=== PATIENT | female | born 1935 | race Caucasian/White ===

== ENCOUNTER → 2018-12-05 12:05 | Outpatient (CLI) | payer MEDICARE, SELFPAY ==
[2018-12-05 13:57] LABS: Free T4, Direct Thyroxine 1.75 ng/dL (0.78-2.19)
[2018-12-05 14:10] LABS: Thyroid Stimulating Hormone 0.24 uIU/mL (0.47-4.68)
== END ==
PROVIDERS: PCP Family Medicine; Visit Provider Family Medicine
DX: E03.9 Hypothyroidism, unspecified (principal)
CPT/HCPCS: 36415; 84439; 84443; 84481

== ENCOUNTER → 2019-06-10 13:37 | Outpatient (CLI) | payer MEDICARE, SELFPAY ==
[2019-06-10 16:44] LABS: Thyroid Stimulating Hormone 0.17 uIU/mL (0.47-4.68)
== END ==
PROVIDERS: PCP Family Medicine; Visit Provider Family Medicine
DX: E03.9 Hypothyroidism, unspecified (principal)
CPT/HCPCS: 36415; 84443

== ENCOUNTER → 2019-09-15 11:56 | Outpatient (CLI) | payer MEDICARE, SELFPAY ==
[2019-09-15 15:15] LABS: Thyroid Stimulating Hormone 1.11 uIU/mL (0.47-4.68)
== END ==
PROVIDERS: PCP Family Medicine; Visit Provider Family Medicine
DX: E03.9 Hypothyroidism, unspecified (principal)
CPT/HCPCS: 36415; 84443

== ENCOUNTER → 2020-06-16 13:49 | Outpatient (CLI) | payer MEDICARE, SELFPAY ==
[2020-06-17 21:19] LABS: COVID19 Sendout Not Detected (Not Detect)
== END ==
PROVIDERS: PCP Family Medicine; Visit Provider Nurse Practitioner
DX: Z11.59 Encounter for screening for other viral diseases (principal); R53.83 Other fatigue
CPT/HCPCS: 87635

== ENCOUNTER → 2020-06-16 14:05 | Outpatient (CLI) | payer MEDICARE, SELFPAY ==
[2020-06-16 16:05] LABS: Hematocrit 42.6 % (36-46); Hemoglobin 14.3 g/dL (12.0-16.0); Mean Corpuscular HGB Conc 33.7 % (30-36); Mean Corpuscular Hemoglobin 32.1 PG (26-34); Mean Corpuscular Volume 95.3 fL (80-100); Platelet Count 254 X10^3/uL (150-400); Red Blood Cell Count 4.47 X10^6/uL (4.0-5.2); Red Cell Distribution Width 13.8 % (11.6-14.8); White Blood Cell Count 6.5 X10^3/uL (4.5-11.0)
[2020-06-16 16:41] LABS: Alanine Aminotransferase 24 IU/L (<35); Albumin 4.2 g/dL (3.5-5.0); Albumin Globulin Ratio 1.2 (1.0-2.8); Alkaline Phosphatase 89 U/L (38-126); Aspartate Aminotransferase 38 IU/L (14-36); BUN Creatinine Ratio 14.5 (6-22); Bilirubin Total 0.6 mg/dL (0.2-1.3); Blood Urea Nitrogen 10 mg/dL (7-17); Carbon Dioxide 25 mmol/L (22-32); Chloride 102 mmol/L (98-107); Estimated Glomerular Filt Rate > 60.0 mL/min (>60); Globulin 3.5 g/dL (1.7-4.1); Glucose 83 mg/dL (80-110); HEMOLYSIS 18 (0-50); Sodium 135 mmol/L (137-145); Total Protein 7.7 g/dL (6.3-8.2)
[2020-06-16 17:02] LABS: TSH w/ Reflex to FT4 0.78 uIU/mL (0.47-4.68)
== END ==
PROVIDERS: PCP Family Medicine; Referring Provider Nurse Practitioner; Visit Provider Nurse Practitioner
DX: Z11.59 Encounter for screening for other viral diseases (principal); R53.83 Other fatigue
CPT/HCPCS: 36415; 80053; 84443; 85027; 87635

== ENCOUNTER → 2020-10-22 07:13 | Outpatient (CLI) | payer MEDICARE, SELFPAY ==
--- NOTE | 2020-10-22 07:15 | DI.RAD.S_ITS ---
PROCEDURE: XR CHEST 2V INDICATIONS: shortness of breath TECHNIQUE: 2 views of the chest were acquired. COMPARISON: CR, CHEST 2 VIEW, 02/18/2014, 9:55. FINDINGS: Surgical changes and devices: None. Lungs and pleura: Lungs are free of evidence of pneumonia or neoplasm but there is pulmonary hyperexpansion that could represent an aggressive inspiratory effort but COPD would be suspected.. No pleural effusions or pneumothorax. Mediastinum: Mediastinal contours are normal. Heart size is normal. Bones and chest wall: No suspicious bony abnormalities. Soft tissues appear unremarkable. IMPRESSION: No acute disease. Pulmonary hyperexpansion with flattening of the diaphragms, to the degree that COPD could be present. Alternatively, a very aggressive inspiratory effort could produce this appearance. Dictated by: Tomas Gamino M.D. on 10/22/2020 at 10:58 Approved by: Tomas Gamino M.D. on 10/22/2020 at 10:58
[2020-10-22 08:18] LABS: Add Manual Diff / Slide Review NO; Basophils Absolute Auto 0 /uL (0-100); Basophils Percent Auto 0.7 % (0-2); Eosinophils Absolute Auto 100 /uL (0-450); Eosinophils Percent Auto 2.1 % (2-4); Hematocrit 46.2 % (36-46); Hemoglobin 15.3 g/dL (12.0-16.0); Lymphocytes Absolute Auto 2000 /uL (1100-4500); Lymphocytes Percent Auto 40.1 % (25-40); Mean Corpuscular HGB Conc 33.2 % (30-36); Mean Corpuscular Hemoglobin 31.1 PG (26-34); Mean Corpuscular Volume 93.7 fL (80-100); Monocytes Absolute Auto 500 /uL (0-900); Monocytes Percent Auto 9.5 % (3-14); Neutrophils Absolute Auto 2400 /uL (1500-7000); Neutrophils Percent Auto 47.6 % (50-75); Platelet Count 239 X10^3/uL (150-400); Red Blood Cell Count 4.93 X10^6/uL (4.0-5.2); Red Cell Distribution Width 14.1 % (11.6-14.8); White Blood Cell Count 4.9 X10^3/uL (4.5-11.0)
[2020-10-22 08:53] LABS: Alanine Aminotransferase 22 IU/L (<35); Albumin 3.9 g/dL (3.5-5.0); Albumin Globulin Ratio 1.1 (1.0-2.8); Alkaline Phosphatase 90 U/L (38-126); Aspartate Aminotransferase 34 IU/L (14-36); BUN Creatinine Ratio 12.9 (6-22); Bilirubin Total 0.8 mg/dL (0.2-1.3); Blood Urea Nitrogen 9 mg/dL (7-17); Calcium 8.9 mg/dL (8.4-10.2); Carbon Dioxide 30 mmol/L (22-32); Chloride 106 mmol/L (98-107); Cholesterol 243 mg/dL (140-199); Estimated Glomerular Filt Rate > 60.0 mL/min (>60); Globulin 3.5 g/dL (1.7-4.1); Glucose 91 mg/dL (80-110); HDL Cholesterol 58 mg/dL (40-60); HEMOLYSIS < 15 (0-50); LDL Cholesterol Calculated 163 mg/dL (<100); Potassium 3.9 mmol/L (3.4-5.1); Sodium 139 mmol/L (137-145); Total Protein 7.4 g/dL (6.3-8.2); Triglycerides 109 mg/dL (35-150)
[2020-10-22 09:33] LABS: TSH w/ Reflex to FT4 0.33 uIU/mL (0.47-4.68)
[2020-10-22 10:00] LABS: Free T4, Direct Thyroxine 1.98 ng/dL (0.78-2.19)
== END ==
PROVIDERS: PCP Family Medicine; Referring Provider Family Medicine; Visit Provider Family Medicine
DX: R06.02 Shortness of breath (principal); E03.9 Hypothyroidism, unspecified
CPT/HCPCS: 36415; 71046; 80053; 80061; 84439; 84443; 85025

== ENCOUNTER → 2020-11-15 13:42 | Outpatient (CLI) | payer MEDICARE, SELFPAY ==
--- NOTE | 2020-11-15 13:43 | DI.MG.S_ITS ---
BILATERAL DIGITAL DIAGNOSTIC MAMMOGRAM 3D/2D: 11/15/2020 CLINICAL: Left breast pain. Comparison is made to exams dated: 06/11/2014 mammogram and 01/17/2005 mammogram - [facility]. The tissue of both breasts is heterogeneously dense. This may lower the sensitivity of mammography. No significant masses, calcifications, or other findings are seen in either breast. IMPRESSION: NEGATIVE There is no abnormality seen in the left breast to correspond with the diffuse pain in the outer aspect, however, clinical correlation is recommended. There is no mammographic evidence of malignancy. A 1 year screening mammogram is recommended. This exam was interpreted at Station ID: [id number]. NOTE: For mammograms, a report in lay terms will be sent to the patient. Approximately 15% of breast malignancies will not be visualized mammographically. In the management of a palpable breast mass, a negative mammogram must not discourage biopsy of a clinically suspicious lesion. Electronically Signed By: Slim ponce/gurpreet:11/15/2020 14:53:45 letter sent: Clinical Evaluation ACR BI-RADS Category 1: Negative [id number]
[2020-11-15 15:19] LABS: COVID19 -Nasal RAPID Negative (Negative)
== END ==
PROVIDERS: PCP Family Medicine; Referring Provider Family Medicine; Visit Provider Family Medicine
DX: N64.4 Mastodynia (principal); Z20.822 Contact with and (suspected) exposure to COVID-19
CPT/HCPCS: 77066; 87635; G0279

== ENCOUNTER → 2020-11-16 08:40 | Outpatient (CLI) | payer MEDICARE, SELFPAY ==
--- NOTE | 2020-11-16 08:41 | DI.NM.S_ITS ---
PROCEDURE: NM RICHAR PERF SPECT REST & STR Rest and exercise myocardial perfusion SPECT with gated imaging and ejection fraction RADIOPHARMACEUTICAL: 11.5 mCi Tc-99m sestamibi IV at rest and 25.2 mCi Tc-99m sestamibi IV at peak exercise. A one day-protocol was performed. INDICATIONS: chest pain, sob TECHNIQUE: Radiopharmaceutical was injected at peak stress test, and also at rest. SPECT images were obtained. SPECT myocardial perfusion images were displayed in short axis, horizontal long axis, and vertical long axis views. Gated images were reviewed using [employer] software. COMPARISON: None. CARDIAC STRESS: A standard Eduardo treadmill exercise tolerance test was performed by the patient under the supervision of an attending staff. The patient exercised for 3 minutes and 6 seconds; functional aerobic impairment (VANESSA) is +25%. Hemodynamic data: There is normal blood pressure and heart rate response to exercise stress. Patient achieved 124% of maximum predicted heart rate at peak exercise. Symptoms: Patient denied chest pain during exercise. EKG: No diagnostic EKG changes of ischemia; no ectopy. FINDINGS: Raw data: There is good myocardial labeling by radiotracer. No significant motion artifacts. Left ventricle function: Gated images demonstrate normal left ventricle wall thickening. No segmental wall motion abnormality. No transient ischemic dilation; TID is 1.15 (normal less than 1.3). The left ventricle resting end-diastolic volume is 55 mL. Left ventricle stress ejection fraction is 87%; normal values are above 45%. Myocardial perfusion: There is normal distribution of activity in the left and right ventricular myocardium. No fixed or reversible perfusion defects. IMPRESSION: Low risk, normal treadmill nuclear stress test 1) No perfusion evidence of ischemia or infarction. 2) Normal left ventricular size, wall motion, and systolic function (EF post stress over calculated at 87%). 3) No ECG evidence of ischemia. 4) No angina during the study. Significant dyspnea with exercise. 5) Reduced exercise capacity (4.6 METs, VANESSA +35% on active scale). Target heart rate achieved. Appropriate BP response to exercise. 6) No prior nuclear stress test available for comparison. Dictated by: Yuli Causey MD on 11/16/2020 at 15:32 Approved by: Yuli Causey MD on 11/16/2020 at 15:35
--- NOTE | 2020-11-16 14:33 | PM.TREADMILL ---
Cardiac Stress Test Report Referral & Results Date Patient Seen: 11/16/20 Requesting provider: Sharlene Graham Indication: Dyspnea with exertion, new inferior Q-waves Rest ECG: Unremarkable, no Q-waves noted Procedure Note: Today following both written and verbal informed consent the patient was exercised according to a standard Eduardo protocol patient went for a total of her 3 minutes 6 seconds achieving a maximum heart rate of 169 maximum systolic blood pressure of 170. This is approximately 4.6 METS. Exercise was terminated at this point because of targets were met. Patient was also given Cardiolite through a previously started Hep-Lock IV by the diagnostic imaging staff approximately 1 minute prior to the cessation of exercise. Patient was somewhat quickly tachycardic and was fairly dyspnea got proportion to level of exertion but oxygen saturation remained normal throughout at 93-94% Function aerobic impairment rated 0 on the sedentary scale No ST-T segment changes Impression: No evidence of ischemia, average exercise capacity Please see perfusion imaging report as well Based on observations while patient was exercising she more likely than not has some element of chronic lung disease and suggest PFTs as well. If clinical concern warrants regarding the Q-waves echocardiography could be performed looking for evidence of prior infarction although that may be noted on perfusion imaging from today study as well. Please note: Actual ECG tracings can be found in the PACS system.
== END ==
PROVIDERS: PCP Family Medicine; Referring Provider Family Medicine; Visit Provider Family Medicine
DX: R07.9 Chest pain, unspecified (principal); R06.02 Shortness of breath; R06.09 Other forms of dyspnea
CPT/HCPCS: 78452; 93016; 93017; 93018; A9502

== ENCOUNTER → 2020-11-19 14:56 | Outpatient (CLI) | payer MEDICARE, SELFPAY ==
[2020-11-19 15:44] LABS: COVID19 -Nasal RAPID Negative (Negative)
--- NOTE | 2020-11-26 07:51 | PM.PFT.1 ---
Pulmonary Function Test Referral & Results Date Patient Seen: 11/19/20 Requesting provider: Sharlene Graham Indication: COPD, shortness of breath Results: The spirometry demonstrates an FVC of 2.97 L which is 105% of predicted. The FEV1 was measured at 1.98 L which is 94% of predicted. The FEV1/FVC ratio was 67 which is 91% of predicted. Following the administration of bronchodilator there was no appreciable change. Lung volumes show an SVC of 3.01 L which is 104% of predicted. The diffusing capacity was measured at 13.74 which is 48% of predicted. No hemoglobin value was provided, so no correction for potential anemia could be made, if appropriate. The maximum voluntary ventilation was reduced Interpretation: This study demonstrates probably normal spirometry but a moderately severe reduction in diffusing capacity suggests significant disease at the capillary alveolar level
== END ==
PROVIDERS: PCP Family Medicine; Referring Provider Family Medicine; Visit Provider Family Medicine
DX: J44.9 Chronic obstructive pulmonary disease, unspecified (principal); R06.02 Shortness of breath; Z20.822 Contact with and (suspected) exposure to COVID-19
CPT/HCPCS: 87635; 94060; 94726; 94729; C9803

== ENCOUNTER → 2021-02-02 11:56 | Outpatient (CLI) | payer MEDICARE, SELFPAY ==
--- NOTE | 2021-02-02 12:13 | DI.CT.S_ITS ---
PROCEDURE: CT CHEST WO CON INDICATIONS: SOB, COPD TECHNIQUE: Noncontrast 5 mm thick sections acquired from the pulmonary apices to the posterior costophrenic angles. 1 mm lung window, 5 mm thick coronal and sagittal and 7 mm axial MIP reformats were then acquired. For radiation dose reduction, the following was used: automated exposure control, adjustment of mA and/or kV according to patient size. COMPARISON: None. FINDINGS: Image quality: Excellent. Lungs and pleura: No acute air space opacities. No pleural effusions or pneumothorax. Central and peripheral airways are patent and normal in caliber. There is a calcified granuloma within the right anterior mid lung, and immediately adjacent is a 4 x 5 mm noncalcified rounded pulmonary nodule at the anterior border of the junction of the medial and lateral segments right middle lobe, in addition to 2 peripheral 3 mm nodules right mid lung and within the right lower lobe 2 additional smaller nodules are seen at the mid chest level. Mediastinum: Heart size is normal. No pericardial effusion. No mediastinal adenopathy by size criteria. Thoracic aorta and central pulmonary arteries are normal in size. Esophagus is normal in caliber. No hiatal hernia. Bones and chest wall: No suspicious bony lesions. No vertebral body compression fractures. No axillary or supraclavicular adenopathy by size criteria. Thyroid gland is not well seen. . Abdomen: Visualized upper abdominal solid organs and bowel loops appear normal in the absence of contrast. IMPRESSION: The pattern of nodules present within the same general region of the right mid chest argues towards granulomatous origin including the finding of calcified nodules. The largest nodule measuring 4 x 5 mm is noncalcified. Please correlate with risk factors for whether a follow-up noncontrast CT scan should be performed in 6 months. No trauma found. Dictated by: Tomas Gamino M.D. on 02/02/2021 at 12:26 Approved by: Tomas Gamino M.D. on 02/02/2021 at 12:30
== END ==
PROVIDERS: PCP Family Medicine; Referring Provider Family Medicine; Visit Provider Family Medicine
DX: J44.9 Chronic obstructive pulmonary disease, unspecified (principal); R06.02 Shortness of breath; R91.8 Other nonspecific abnormal finding of lung field
CPT/HCPCS: 71250

== ENCOUNTER → 2021-08-01 13:59 | Outpatient (CLI) | payer MEDICARE, SELFPAY ==
[2021-08-01 18:33] LABS: COVID19 -Nasal RAPID Negative (Negative)
== END ==
PROVIDERS: PCP Family Medicine; Visit Provider Nurse Practitioner Family
DX: Z20.822 Contact with and (suspected) exposure to COVID-19 (principal); J02.9 Acute pharyngitis, unspecified
CPT/HCPCS: 87635

== ENCOUNTER → 2021-08-02 12:22 | Outpatient (CLI) | payer MEDICARE, SELFPAY ==
[2021-08-02 13:56] LABS: TSH w/ Reflex to FT4 1.51 uIU/mL (0.47-4.68)
== END ==
PROVIDERS: PCP Family Medicine; Referring Provider Family Medicine; Visit Provider Family Medicine
DX: E03.9 Hypothyroidism, unspecified (principal)
CPT/HCPCS: 36415; 84443

== ENCOUNTER → 2021-09-23 10:47 | Outpatient (CLI) | payer MEDICARE, SELFPAY ==
[2021-09-23 12:38] LABS: NT-proBNP (BNP-Adult 18+) 107 pg/mL (<450)
== END ==
PROVIDERS: PCP Family Medicine; Referring Provider Internal Medicine Cardiovascular Disease; Visit Provider Internal Medicine Cardiovascular Disease
DX: R06.02 Shortness of breath (principal)
CPT/HCPCS: 36415; 83880

== ENCOUNTER → 2022-11-13 15:59 | Outpatient (CLI) | payer MEDICARE, SELFPAY ==
[2022-11-13 19:25] LABS: TSH w/ Reflex to FT4 1.67 uIU/mL (0.47-4.68)
== END ==
PROVIDERS: PCP Family Medicine; Referring Provider Family Medicine; Visit Provider Family Medicine
DX: E03.9 Hypothyroidism, unspecified (principal)
CPT/HCPCS: 36415; 84443

== ENCOUNTER → 2022-12-29 14:29 | Outpatient (CLI) | payer MEDICARE, SELFPAY ==
--- NOTE | 2022-12-29 14:35 | DI.RAD.S_ITS ---
PROCEDURE: XR CHEST 2V INDICATIONS: PALPITATIONS, COVID 19 TECHNIQUE: 2 views of the chest were acquired. COMPARISON: [facility], CR, XR CHEST 2V, 10/22/2020, 7:42. FINDINGS: Surgical changes and devices: None. Lungs and pleura: Lungs are clear. No pleural effusions or pneumothorax. Mediastinum: Mediastinal contours are normal. Heart size is normal. Bones and chest wall: No suspicious bony abnormalities. Soft tissues appear unremarkable. IMPRESSION: No acute pulmonary process. Dictated by: Kiarra Desai M.D. on 12/30/2022 at 10:28 Approved by: Kiarra Desai M.D. on 12/30/2022 at 10:29
== END ==
PROVIDERS: PCP Family Medicine; Referring Provider Internal Medicine Cardiovascular Disease; Visit Provider Internal Medicine Cardiovascular Disease
DX: R00.2 Palpitations (principal); U07.1 COVID-19
CPT/HCPCS: 71046

== ENCOUNTER → 2023-03-12 10:35 | Outpatient (CLI) | payer MEDICARE, SELFPAY ==
[2023-03-12 11:58] LABS: Hematocrit 41.3 % (36-46); Hemoglobin 13.7 g/dL (12.0-16.0); Mean Corpuscular HGB Conc 33.3 % (30-36); Mean Corpuscular Hemoglobin 29.5 PG (26-34); Mean Corpuscular Volume 88.5 fL (80-100); Platelet Count 261 X10^3/uL (150-400); Red Blood Cell Count 4.66 X10^6/uL (4.0-5.2); Red Cell Distribution Width 15.4 % (11.6-14.8); White Blood Cell Count 7.4 X10^3/uL (4.5-11.0)
[2023-03-12 12:09] LABS: Alanine Aminotransferase 17 IU/L (<35); Albumin Globulin Ratio 1.1 (1.0-2.8); Alkaline Phosphatase 93 U/L (38-126); Aspartate Aminotransferase 28 IU/L (14-36); BUN Creatinine Ratio 20.5 (6-22); Bilirubin Total 0.6 mg/dL (0.2-1.3); Blood Urea Nitrogen 17 mg/dL (7-17); Carbon Dioxide 27 mmol/L (22-32); Chloride 103 mmol/L (98-107); Estimated Glomerular Filt Rate > 60 mL/min (>60); Globulin 3.6 g/dL (1.7-4.1); Glucose 79 mg/dL (80-110); HEMOLYSIS < 15 (0-50); Magnesium 2.1 mg/dL (1.6-2.3); Potassium 4.2 mmol/L (3.4-5.1); Sodium 135 mmol/L (137-145); Total Protein 7.6 g/dL (6.3-8.2)
[2023-03-12 12:27] LABS: Free T4, Direct Thyroxine 1.41 ng/dL (0.78-2.19)
[2023-03-12 12:28] LABS: Free T3, Triiodothyronine Free 2.93 pg/mL (2.77-5.27)
[2023-03-12 12:42] LABS: Thyroid Stimulating Hormone 2.42 uIU/mL (0.47-4.68)
== END ==
PROVIDERS: PCP Family Medicine; Referring Provider Nurse Practitioner; Visit Provider Nurse Practitioner
DX: R06.02 Shortness of breath (principal); E03.9 Hypothyroidism, unspecified; R42 Dizziness and giddiness
CPT/HCPCS: 36415; 80053; 83735; 84439; 84443; 84481; 85027

== ENCOUNTER 2023-05-24 11:20 | Emergency (ER) | payer MEDICARE, SELFPAY ==
[2023-05-24] VITALS (7 sets, daily range): BP systolic 159–202; BP diastolic 74–88; PULSE 69–82; RESP 11–26; TEMP 36.2; O2SAT 95–98; BMI 28.2
--- NOTE | 2023-05-24 11:38 | DI.RAD.S_ITS ---
PROCEDURE: XR CHEST 1V INDICATIONS: Shortness of breath TECHNIQUE: One view of the chest was acquired. COMPARISON: [facility], CR, XR CHEST 2V, 12/29/2022, 14:33. FINDINGS: Surgical changes and devices: None. Lungs and pleura: Lungs are clear. No pleural effusions or pneumothorax. Mediastinum: Mediastinal contours appear normal. Heart size is normal. Bones and chest wall: No suspicious bony lesions. Overlying soft tissues appear unremarkable. IMPRESSION: No evidence acute pulmonary process. Dictated by: Fredrick Marques M.D. on 05/24/2023 at 12:26 Approved by: Fredrick Marques M.D. on 05/24/2023 at 12:27
[2023-05-24] MEDS: ALBUTEROL/IPRATROPIUM 3 ML AMPUL 6 ML INH (11:49)
[2023-05-24 12:07] LABS: Add Manual Diff / Slide Review NO; Basophils Absolute Auto 100 /uL (0-100); Basophils Percent Auto 0.8 % (0-2); Eosinophils Absolute Auto 100 /uL (0-450); Eosinophils Percent Auto 1.4 % (2-4); Hematocrit 43.6 % (36-46); Hemoglobin 14.8 g/dL (12.0-16.0); Lymphocytes Absolute Auto 2300 /uL (1100-4500); Lymphocytes Percent Auto 31.4 % (25-40); Mean Corpuscular Hemoglobin 30.3 PG (26-34); Mean Corpuscular Volume 89.1 fL (80-100); Monocytes Absolute Auto 800 /uL (0-900); Monocytes Percent Auto 10.6 % (3-14); Neutrophils Absolute Auto 4000 /uL (1500-7000); Neutrophils Percent Auto 55.8 % (50-75); Platelet Count 233 X10^3/uL (150-400); Red Blood Cell Count 4.89 X10^6/uL (4.0-5.2); Red Cell Distribution Width 15.5 % (11.6-14.8); White Blood Cell Count 7.2 X10^3/uL (4.5-11.0)
[2023-05-24 12:09] LABS: Prothrombin Time 11.8 SECONDS (10.1-12.7)
[2023-05-24 12:16] LABS: Lactate (Lactic Acid) 1.4 mmol/L (0.7-2.1)
[2023-05-24 12:17] LABS: Alanine Aminotransferase 24 IU/L (<35); Albumin Globulin Ratio 1.2 (1.0-2.8); Alkaline Phosphatase 88 U/L (38-126); Aspartate Aminotransferase 35 IU/L (14-36); BUN Creatinine Ratio 17.7 (6-22); Bilirubin Total 0.9 mg/dL (0.2-1.3); Blood Urea Nitrogen 14 mg/dL (7-17); Calcium 9.1 mg/dL (8.4-10.2); Carbon Dioxide 23 mmol/L (22-32); Chloride 104 mmol/L (98-107); Estimated Glomerular Filt Rate > 60 mL/min (>60); Globulin 3.4 g/dL (1.7-4.1); Glucose 93 mg/dL (80-110); HEMOLYSIS < 15 (0-50); Potassium 3.9 mmol/L (3.4-5.1); Sodium 135 mmol/L (137-145); Total Protein 7.4 g/dL (6.3-8.2)
[2023-05-24 12:26] LABS: NT-proBNP (BNP-Adult 18+) 275 pg/mL (<450); Troponin I < 0.012 ng/mL (0.01-0.034)
--- NOTE | 2023-05-24 12:32 | ED_ITS ---
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 She is followed by waste reduction coordinator, Dr. Sampson. 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 She started Cardiopulmonary Rehab 3 weeks ago to see if this might be helpful with her overall air hunger Related Data Home Medications Medication Instructions Recorded Confirmed [gelatin] ##0 01/22/18 03/28/23 [magnesium glycinate] ##0 01/22/18 03/28/23 [nature throid] ##0 01/22/18 03/28/23 cholecalciferol (vitamin D3) 125 5,000 unit PO ##0 01/22/18 03/28/23 mcg (5,000 unit) capsule multivitamin (Multiple Vitamins 1 tab PO QDAY ##0 01/22/18 03/28/23 tablet) omega-3 fatty acids 500 mg-dha 270 1 ea PO ##0 01/22/18 03/28/23 mg-epa 135 mg capsule (Ovega-3) Previous Rx's Medication Instructions Recorded levothyroxine 75 mcg tablet 75 mcg PO DAILY #90 tabs 11/29/22 metoprolol tartrate 25 mg tablet 12.5 mg PO BID #30 tabs 05/24/23 Allergies Allergy/AdvReac Type Severity Reaction Status Date / Time No Known Drug Allergies Allergy Verified 03/28/23 15:22 Patient History Medical History (Updated 05/24/23 @ 13:20 by Susi Gage MD) Chronic obstructive pulmonary disease History of cataract (~2007) History of chickenpox (~194) History of genital warts History of hypothyroidism History of measles (~194) History of migraine (~1949) History of mumps (~194) History of sleep apnea (~2011) History of urinary incontinence Hx of fracture of foot (~1990) Painful menstrual periods Scoliosis Secondhand smoke exposure Spasm of colon Thyroid nodule (~1985) Surgical History Anesthesia H/O ligation of vein (~1960) History of arthroplasty of right hip (~04/09/18) S/P anal fissurectomy (~1969) Status post hysterectomy (~1984) Status post Mohs surgery (~1999) Family History Father Heart disease Cirrhosis of liver Sister Age: 88 Asthma Diabetes mellitus Mother COPD (chronic obstructive pulmonary disease) Stroke Sister No problems noted. Grandfather Automobile accident Grandmother Advanced dementia Grandfather No problems noted. 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) Smoking Status: Never smoker alcohol intake: current substance use type: does not use Smoking Status: Never smoker alcohol intake frequency: a few times a week Alcohol type: wine Substance Use Type: does not use Exam Initial Vital Signs Initial Vital Signs: Vital Signs Temperature 97.1 F L 05/24/23 11:33 Pulse Rate 82 05/24/23 11:33 Respiratory Rate 26 H 05/24/23 11:33 Blood Pressure 202/88 H 05/24/23 11:33 Pulse Oximetry 98 05/24/23 11:33 Oxygen Delivery Method Room Air 05/24/23 11:33 Course Orders Ordered: Discontinued Medications Albuterol/Ipratropium (Albuterol/Ipratropium 3 Ml Ampul) 6 ml INH NOW ONE Stop: 05/24/23 11:47 Last Admin: 05/24/23 11:49 Dose: 6 ml Documented By: CIRO Metoprolol Tartrate (Metoprolol Ir 25 Mg Tablet) 12.5 mg PO NOW ONE Stop: 05/24/23 13:43 Last Admin: 05/24/23 13:48 Dose: 12.5 mg Documented By: MIKO Vital Signs Vital signs: Vital Signs - 8 hr 05/24/23 11:33 05/24/23 11:49 05/24/23 12:06 Temperature 97.1 F L Pulse Rate 82 79 69 Respiratory Rate 26 H 16 26 H Blood Pressure 202/88 H Pulse Oximetry 98 98 97 Oxygen Delivery Method Room Air Room Air Room Air 05/24/23 12:30 05/24/23 12:30 Temperature Pulse Rate 73 Respiratory Rate 11 L Blood Pressure 166/74 H Pulse Oximetry 98 Oxygen Delivery Method Room Air Medical Decision Making Lab Data 05/24/23 11:48 05/24/23 11:48 Labs: Lab Results 05/24/23 05/24/23 05/24/23 Range/Units 11:48 11:48 11:48 WBC 7.2 (4.5-11.0) X10^3/uL RBC 4.89 (4.0-5.2) X10^6/uL Hgb 14.8 (12.0-16.0) g/dL Hct 43.6 (36-46) % MCV 89.1 (80-100) fL MCH 30.3 (26-34) PG MCHC 34.0 (30-36) % RDW 15.5 H (11.6-14.8) % Plt Count 233 (150-400) X10^3/uL Neut % (Auto) 55.8 (50-75) % Lymph % (Auto) 31.4 (25-40) % [place] % (Auto) 10.6 (3-14) % Eos % (Auto) 1.4 L (2-4) % Baso % (Auto) 0.8 (0-2) % Neut # (Auto) 4000 (8628-8029) /uL Lymph # (Auto) 2300 (2025-5391) /uL [place] # (Auto) 800 (0-900) /uL Eos # (Auto) 100 (0-450) /uL Baso # (Auto) 100 (0-100) /uL PT 11.8 (10.1-12.7) SECONDS INR 1.0 (0.9-1.3) Sodium 135 L (137-145) mmol/L Potassium 3.9 (3.4-5.1) mmol/L Chloride 104 (98-107) mmol/L Carbon Dioxide 23 (22-32) mmol/L BUN 14 (7-17) mg/dL Creatinine 0.79 (0.52-1.04) mg/dL Estimated GFR > 60 (>60) mL/min BUN/Creatinine Ratio 17.7 (6-22) Glucose 93 (80-110) mg/dL Lactate (0.7-2.1) mmol/L Calcium 9.1 (8.4-10.2) mg/dL Total Bilirubin 0.9 (0.2-1.3) mg/dL AST 35 (14-36) IU/L ALT 24 (<35) IU/L Alkaline Phosphatase 88 (38-126) U/L Troponin I < 0.012 (0.01-0.034) ng/mL NT-Pro-B Natriuret Pep 275 (<450) pg/mL Total Protein 7.4 (6.3-8.2) g/dL Albumin 4.0 (3.5-5.0) g/dL Globulin 3.4 (1.7-4.1) g/dL Albumin/Globulin Ratio 1.2 (1.0-2.8) 05/24/23 Range/Units 11:48 WBC (4.5-11.0) X10^3/uL RBC (4.0-5.2) X10^6/uL Hgb (12.0-16.0) g/dL Hct (36-46) % MCV (80-100) fL MCH (26-34) PG MCHC (30-36) % RDW (11.6-14.8) % Plt Count (150-400) X10^3/uL Neut % (Auto) (50-75) % Lymph % (Auto) (25-40) % [place] % (Auto) (3-14) % Eos % (Auto) (2-4) % Baso % (Auto) (0-2) % Neut # (Auto) (7125-6715) /uL Lymph # (Auto) (2325-2157) /uL [place] # (Auto) (0-900) /uL Eos # (Auto) (0-450) /uL Baso # (Auto) (0-100) /uL PT (10.1-12.7) SECONDS INR (0.9-1.3) Sodium (137-145) mmol/L Potassium (3.4-5.1) mmol/L Chloride (98-107) mmol/L Carbon Dioxide (22-32) mmol/L BUN (7-17) mg/dL Creatinine (0.52-1.04) mg/dL Estimated GFR (>60) mL/min BUN/Creatinine Ratio (6-22) Glucose (80-110) mg/dL Lactate 1.4 (0.7-2.1) mmol/L Calcium (8.4-10.2) mg/dL Total Bilirubin (0.2-1.3) mg/dL AST (14-36) IU/L ALT (<35) IU/L Alkaline Phosphatase (38-126) U/L Troponin I (0.01-0.034) ng/mL NT-Pro-B Natriuret Pep (<450) pg/mL Total Protein (6.3-8.2) g/dL Albumin (3.5-5.0) g/dL Globulin (1.7-4.1) g/dL Albumin/Globulin Ratio (1.0-2.8) MDM Narrative Medical decision making narrative: CC: Shortness of breath Complicating co-morbidities: Hypothyroidism, whitten's lung' Data collected from: patient, Social determinants of health that may influence the patients condition: Medical records reviewed: Primary care notes from March 28 and an November 08 are reviewed. Differential considered: Acute coronary syndrome, arrhythmia, pneumonia, p neumothorax, Exam documented above, pertinent findings include: Lab Test results independently reviewed as above. Pertinent findings: CBC is unremarkable no evidence of significant anemia Chemistries are reassuring Troponin is undetectable Independently reviewed EKG rate of 74 with frequent PVCs. No acute ischemia. Imaging studies independently reviewed: No acute pulmonary process appreciated Consultations: Dr Dias. Discussed findings and concerns that her symptoms may simply be related to frequent PVCs. With her blood pressure at 166/74 she certainly has room to add a small dose of beta-arnoldo. In consultation with her primary care doctor will begin metoprolol 12.5 mg b.i.d. his office will contact her for continued follow-up and review cardiology workup to date and see if additional cardiology consultation is required Treatments: 2 DuoNebs. 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 Was at cardiac rehab began having frequent PVCs to the point of bigeminy and trigeminy associated with this was increased shortness of breath without changes to oxygen saturation. She objectively felt better on oxygen. After resting she is continued to improve to the point that PVCs are almost completely resolved. She did get to o [facility] and I suspect that simply sitting and resting with the PVCs revolving was more effective than the DuoNebs. On clinical exam she has minimal wheezing. I suspect that suppressing her PVCs may be more effective in controlling her symptoms. Prescription for metoprolol is given. Patient will follow-up with Dr. Dias. She is safe for discharge Discharge Plan Departure Patient Disposition: Home Clinical Impression: Premature ventricular contractions (PVCs) (VPCs), Chronic dyspnea Instructions: Premature Ventricular Beats, DI for Shortness of Breath Activity Restrictions/Additional Instructions: Thank you for coming in today There is no evidence of worsening lung issues, collapsed lung, heart attack or acute coronary syndrome. While you are exercising, you did have frequent PVCs or premature ventricular contractions. These are not pathologic and are not going to cause a heart attack but the frequency may be contributing to the shortness of breath that you are experiencing acutely. I discussed her care with Dr. Dias, together we agreed that starting you on a very small dose of a beta-arnoldo medication to help with blood pressure and try to prevent frequent PVCs would be useful. His office will be calling you to schedule an appointment to follow-up within the next couple of days. A prescription for metoprolol was electronically transmitted to [facility] I have given you the 1st dose of metoprolol in the emergency department, please fill the prescription, it is a twice a day medication at this very low dose. If you are finding that you are dizzy standing up, note that your heart rate is too slow or your having any worsening symptoms please return to the ER Prescriptions: New metoprolol tartrate 25 mg tablet 12.5 mg PO BID Qty: 30 0RF No Action [nature throid] Qty: 0 multivitamin [Multiple Vitamins] 1 EACH tablet 1 tab PO QDAY Qty: 0 cholecalciferol (vitamin D3) 5,000 UNIT capsule 5,000 unit PO Qty: 0 omega-3 fatty [id number] [Ovega-3] 1 EACH capsule 1 ea PO Qty: 0 [magnesium glycinate] Qty: 0 [gelatin] Qty: 0 levothyroxine 75 mcg tablet 75 mcg PO DAILY Qty: 90 3RF Stand Alone Forms: Patient Portal/API
[2023-05-24] MEDS: METOPROLOL IR 25 MG TABLET 12.5 MG PO (13:48)
== END 2023-05-24 14:00 | disposition home or self-care (01) ==
PROVIDERS: Emergency Provider Emergency Medicine
DX: I49.3 Ventricular premature depolarization (principal); R06.09 Other forms of dyspnea
CPT/HCPCS: 36415; 71045; 80053; 83605; 83880; 84484; 85025; 85610; 93005; 94640; 99284

== ENCOUNTER 2023-08-15 10:15 | Outpatient (RCR) | payer MEDICARE, SELFPAY | END 2023-08-15 14:30 | LOC: PUL 10:15 | PROVIDERS: PCP Family Medicine; Referring Provider Family Medicine; Visit Provider Family Medicine | DX: U09.9 Post COVID-19 condition, unspecified (principal); R06.02 Shortness of breath | CPT/HCPCS: 94625; 94626; G0237; G0238 ==

== ENCOUNTER → 2023-10-03 07:51 | Outpatient (CLI) | payer MEDICARE, SELFPAY ==
[2023-10-03 09:26] LABS: Cholesterol 219 mg/dL (140-199); HDL Cholesterol 59 mg/dL (40-60); LDL Cholesterol Calculated 138 mg/dL (<100); Triglycerides 110 mg/dL (35-150)
[2023-10-03 10:24] LABS: TSH w/ Reflex to FT4 2.15 uIU/mL (0.47-4.68)
== END ==
PROVIDERS: PCP Family Medicine; Referring Provider Family Medicine; Visit Provider Family Medicine
DX: E03.9 Hypothyroidism, unspecified (principal); G47.33 Obstructive sleep apnea (adult) (pediatric)
CPT/HCPCS: 36415; 80061; 84443

== ENCOUNTER → 2023-10-15 07:00 | Outpatient (CLI) | payer MEDICARE, SELFPAY ==
[2023-10-15 08:22] LABS: Add Manual Diff / Slide Review NO; Basophils Absolute Auto 0 /uL (0-100); Basophils Percent Auto 0.7 % (0-2); Eosinophils Absolute Auto 100 /uL (0-450); Eosinophils Percent Auto 2.6 % (2-4); Hematocrit 48.3 % (36-46); Hemoglobin 16.2 g/dL (12.0-16.0); Lymphocytes Absolute Auto 2200 /uL (1100-4500); Lymphocytes Percent Auto 42.1 % (25-40); Mean Corpuscular HGB Conc 33.6 % (30-36); Mean Corpuscular Hemoglobin 31.8 PG (26-34); Mean Corpuscular Volume 94.7 fL (80-100); Monocytes Absolute Auto 600 /uL (0-900); Monocytes Percent Auto 10.6 % (3-14); Neutrophils Absolute Auto 2300 /uL (1500-7000); Platelet Count 231 X10^3/uL (150-400); White Blood Cell Count 5.3 X10^3/uL (4.5-11.0)
[2023-10-15 09:04] LABS: Alanine Aminotransferase 23 IU/L (<35); Albumin 3.7 g/dL (3.5-5.0); Albumin Globulin Ratio 1.1 (1.0-2.8); Alkaline Phosphatase 77 U/L (38-126); Aspartate Aminotransferase 32 IU/L (14-36); BUN Creatinine Ratio 15.4 (6-22); Blood Urea Nitrogen 12 mg/dL (7-17); Calcium 9.2 mg/dL (8.4-10.2); Carbon Dioxide 28 mmol/L (22-32); Chloride 105 mmol/L (98-107); Estimated Glomerular Filt Rate > 60 mL/min (>60); Globulin 3.3 g/dL (1.7-4.1); Glucose 91 mg/dL (80-110); HEMOLYSIS < 15 (0-50); Lipase 126 U/L (23-300); Potassium 4.7 mmol/L (3.4-5.1); Sodium 138 mmol/L (137-145)
[2023-10-16 06:40] LABS: Interpretation Negative (Negative)
== END ==
PROVIDERS: PCP Family Medicine; Referring Provider Family Medicine; Visit Provider Family Medicine
DX: R10.9 Unspecified abdominal pain (principal)
CPT/HCPCS: 36415; 80053; 83013; 83690; 85025

== ENCOUNTER → 2023-10-22 07:07 | Outpatient (CLI) | payer MEDICARE, SELFPAY ==
--- NOTE | 2023-10-22 07:08 | DI.US.S_ITS ---
PROCEDURE: US ABDOMEN LIMITED INDICATIONS: RUQ PAIN TECHNIQUE: Real-time scanning was performed of the abdominal and retroperitoneal organs, with image documentation. COMPARISON: None. FINDINGS: Liver: Liver is normal in size and homogeneous in echotexture. Gallbladder: Unremarkable. Biliary ducts: Intrahepatic bile ducts are non-dilated. Extrahepatic bile duct caliber measures 6 mm. Normal is 6-7 mm or less in diameter, or 10 mm or less post-cholecystectomy. Pancreas: Visualized portions of the pancreas are sonographically normal. Right kidney: Normal size and echogenicity. No hydronephrosis. Simple cyst on the superior pole without internal complexity measuring 4.2 centimeters; no further follow-up is indicated per consensus guidelines. Miscellaneous: No free abdominal fluid. IMPRESSION: Unremarkable gallbladder and liver. Benign right renal cyst measuring 4.2 centimeter. No further follow-up indicated. Dictated by: Vinicio Drew M.D. on 10/22/2023 at 9:02 Approved by: Vinicio Drew M.D. on 10/22/2023 at 9:03
== END ==
PROVIDERS: PCP Family Medicine; Referring Provider Family Medicine; Visit Provider Family Medicine
DX: R10.9 Unspecified abdominal pain (principal); N28.1 Cyst of kidney, acquired
CPT/HCPCS: 76705

== ENCOUNTER → 2024-10-13 07:18 | Outpatient (CLI) | payer MEDICARE, SELFPAY ==
[2024-10-13 08:26] LABS: Add Manual Diff / Slide Review NO; Basophils Absolute Auto 100 /uL (0-100); Basophils Percent Auto 1.1 % (0-2); Eosinophils Absolute Auto 100 /uL (0-450); Eosinophils Percent Auto 2.5 % (2-4); Hematocrit 46.3 % (36-46); Hemoglobin 15.6 g/dL (12.0-16.0); Lymphocytes Absolute Auto 1800 /uL (1100-4500); Lymphocytes Percent Auto 39.4 % (25-40); Mean Corpuscular HGB Conc 33.6 % (30-36); Mean Corpuscular Hemoglobin 32.4 PG (26-34); Mean Corpuscular Volume 96.3 fL (80-100); Monocytes Absolute Auto 500 /uL (0-900); Monocytes Percent Auto 11.8 % (3-14); Neutrophils Absolute Auto 2000 /uL (1500-7000); Neutrophils Percent Auto 45.2 % (50-75); Platelet Count 248 X10^3/uL (150-400); Red Blood Cell Count 4.81 X10^6/uL (4.0-5.2); White Blood Cell Count 4.5 X10^3/uL (4.5-11.0)
[2024-10-13 08:56] LABS: Alanine Aminotransferase 23 IU/L (<35); Albumin 3.7 g/dL (3.5-5.0); Albumin Globulin Ratio 1.1 (1.0-2.8); Alkaline Phosphatase 80 U/L (38-126); Aspartate Aminotransferase 41 IU/L (14-36); BUN Creatinine Ratio 11.9 (6-22); Bilirubin Total 0.9 mg/dL (0.2-1.3); Blood Urea Nitrogen 10 mg/dL (7-17); Calcium 9.1 mg/dL (8.4-10.2); Carbon Dioxide 29 mmol/L (22-32); Chloride 106 mmol/L (98-107); Cholesterol 250 mg/dL (140-199); Estimated Glomerular Filt Rate > 60 mL/min (>60); Globulin 3.4 g/dL (1.7-4.1); Glucose 92 mg/dL (80-110); HDL Cholesterol 66 mg/dL (40-60); HEMOLYSIS < 15 (0-50); LDL Cholesterol Calculated 159 mg/dL (<100); Potassium 4.2 mmol/L (3.4-5.1); Sodium 137 mmol/L (137-145); Total Protein 7.1 g/dL (6.3-8.2); Triglycerides 127 mg/dL (35-150)
[2024-10-13 09:24] LABS: TSH w/ Reflex to FT4 2.77 uIU/mL (0.47-4.68)
== END ==
LOC: LAB 07:18
PROVIDERS: PCP Family Medicine; Referring Provider Family Medicine; Visit Provider Family Medicine
DX: E78.00 Pure hypercholesterolemia, unspecified (principal); E03.9 Hypothyroidism, unspecified; Z13.6 Encounter for screening for cardiovascular disorders
CPT/HCPCS: 36415; 80053; 80061; 84443; 85025

== ENCOUNTER → 2024-11-12 14:36 | Outpatient (CLI) | payer MEDICARE, SELFPAY ==
--- NOTE | 2024-11-12 14:37 | DI.CT.S_ITS ---
PROCEDURE: CT CHEST WO CON INDICATIONS: chronic SOB, MCKAY TECHNIQUE: Noncontrast 5 mm thick sections acquired from the pulmonary apices to the posterior costophrenic angles. 1 mm lung window, 5 mm thick coronal and sagittal and 7 mm axial MIP reformats were then acquired. For radiation dose reduction, the following was used: automated exposure control, adjustment of mA and/or kV according to patient size. COMPARISON: [facility], CT, CT CHEST WO CON, 02/02/2021, 12:04. FINDINGS: Image quality: Diagnostic. Lower Neck: No enlarged lymph nodes. Thyroid: No thyroid nodules which require sonographic follow up, per consensus guidelines. Axillae: No enlarged lymph nodes. Chest Wall: Unremarkable. Bones: No suspicious osseous lesion. Multilevel DDD. Lungs and Pleura: No pneumothorax or pleural effusions. No acute airspace opacity. Mild peripheral reticular thickening is unchanged. No honeycombing. Central airways are clear. Mild bronchiectasis. Calcified granuloma. A few small pulmonary nodules. For example: -Right middle lobe 0.5 cm, (3/199), unchanged since at least 2020 suggesting a benign etiology. -Left major fissure 0.4 cm, (3/179), unchanged. Heart: Heart size is normal. No pericardial effusion. Thoracic Vessels: Retro esophageal right subclavian artery, variant. Mediastinum and Gali: No enlarged lymph nodes. Esophagus: No wall thickening. No hiatal hernia. Upper Abdomen: Visualized upper abdomen solid organs and bowel loops appear normal. IMPRESSION: 1. No acute airspace opacity. No pleural effusion. 2. Mild bronchiectasis. Mild peripheral reticular thickening. These findings are unchanged since 2020 and are suggestive of mild interstitial lung disease. 3. No new or enlarging pulmonary nodules. A few small pulmonary nodules measuring up to 0.5 cm, unchanged since 2020. These most likely represent noncalcified granulomas. Dictated by: Leif Villarreal M.D. on 11/13/2024 at 10:18 Approved by: Leif Villarreal M.D. on 11/13/2024 at 10:25
== END ==
PROVIDERS: PCP Family Medicine; Referring Provider Family Medicine; Visit Provider Family Medicine
DX: J47.9 Bronchiectasis, uncomplicated (principal); R91.8 Other nonspecific abnormal finding of lung field; R06.09 Other forms of dyspnea; R06.02 Shortness of breath
CPT/HCPCS: 71250

== ENCOUNTER → 2024-11-18 12:12 | Outpatient (CLI) | payer MEDICARE, SELFPAY ==
--- NOTE | 2024-11-18 12:12 | DI.ECHO.S_ITS ---
[facility] : : [address] : : [place] : : [id number] : : Phone: [phone] Echocardiogram Report + + :Name: MILY LUGO Study Date: 11/18/2024 Height: 66.5 in: :[facility] ReadingLocation: Weight: 180 lb : : Gender: Female BSA: 1.9 m2 : :: 1935 Age: 88 yrs BP: 147/89 mmHg: :Reason For Study: DYSPNEA ON EXERTION, CHRONIC SOB, SECOND : :HAND SMOKE EXPOSURE : :Ordering Physician: MARCELA, : :ASHLI Levine Performed By: Makayla Gaviria : :Referring: ASHLI MEDRANO : + + Interpretation Summary 1. The left ventricular contractility is normal. Estimate ejection fraction is greater than 55% with no segmental wall motion abnormalities. Mild concentric LVH. Unable to comment on diastolic function. 2. The right ventricular contractility is normal. 3. The left ventricle appears to be small and may be underfilled. All other cardiac chambers are of normal size. 4. Trace to mild tricuspid regurgitation with estimated pulmonary systolic artery pressures of 28 mmHg. 5. No obvious intracardiac shunts. 6. No obvious intracardiac masses nor thrombi. 7. No hemodynamically significant pericardial effusion. 8. Low right-sided filling pressures. Conclusion: Normal biventricular systolic function with no significant valvular abnormalities. Procedure: A two-dimensional transthoracic echocardiogram with color flow and Doppler was performed. The study quality was technically adequate. There is no prior echocardiogram noted for this patient. The heart rate ranged between 68-82 bpm during the study. Left Ventricle: The left ventricular cavity is small. Left ventricular wall thickness is mildly increased. The ejection fraction is estimated to be 55- 60%. Right Ventricle: The right ventricle is normal in size and function. Atria: The left atrial size is normal. Right atrial size is normal. There is no Doppler evidence for an interatrial shunt. Mitral Valve: The mitral valve leaflets appear mildly thickened, but open well. There is mild mitral annular calcification. There is no mitral regurgitation noted. Aortic Valve: The aortic valve is trileaflet. The aortic valve opens well. There is no aortic valve stenosis. No aortic regurgitation is present. Tricuspid Valve: The tricuspid valve leaflets are thin and pliable. There is mild tricuspid regurgitation. The right ventricular systolic pressure is estimated to be at least 28 mmHg based on an estimated right atrial pressure of 3 mm Hg. Pulmonic Valve: The pulmonic valve is not well visualized. There is no pulmonic valvular regurgitation. Great Vessels: The aortic root is normal size. The dimensions of the ascending aorta are normal. The IVC is of normal diameter and collapses greater than 50% with a sniff. This suggests a low right atrial pressure of 3 mm Hg. Pericardium/ Pleura There is no pericardial effusion. There is no pleural effusion. MMode/2D Measurements & Calculations LVIDd: 3.0 cm LVOT diam: 2.2 cm LVIDs: 2.1 cm Ao root diam: 2.7 cm FS: 29.0 % asc Aorta Diam: 3.0 cm IVSd: 1.2 cm Ao Arch Diam (Prox Trans): 2.8 cm LVPWd: 1.1 cm LV zhao. diameter/BSA (cm/m^2): 1.6 LV sys. diameter/BSA (cm/m^2): 1.1 LA A2 area: 19.7 cm2 RA long axis: 4.7 cm LA A4 area: 15.0 cm2 RA area: 14.9 cm2 LA length (vol): 5.1 cm RA vol: 40.5 ml LA vol: 49.1 ml RA : 21.0 ml/m2 LA vol index: 25.5 ml/m2 IVC diam: 1.6 cm RVD1 (basal): 2.9 cm RVD2 (mid): 2.0 cm TAPSE: 1.9 cm Doppler Measurements & Calculations Ao V2 max: 109.8 cm/sec LVOT Max Scott: 63.4 cm/sec Ao V2 mean: 78.3 cm/sec LV V1 max P.6 mmHg Ao max P.8 mmHg LV V1 VTI: 14.4 cm Ao mean P.7 mmHg PELON(I,D): 2.0 cm2 Ao V2 VTI: 26.3 cm PELON(V,D): 2.1 cm2 sev ratio: 0.55 PELON indexed to BSA (cm^2/m^2): 1.1 MV E max scott: 64.5 cm/sec TR max scott: 247.6 cm/sec MV A max scott: 103.5 cm/sec TR max P.5 mmHg MV E/A: 0.62 PA V2 max: 81.1 cm/sec Med Peak E' Scott: 8.7 cm/sec PA V2 mean: 62.1 cm/sec E/E' med: 7.5 PA mean P.6 mmHg Lat Peak E' Scott: 6.7 cm/sec PA pr(Accel): 12.2 mmHg E/E' lat: 9.6 E/e' average: 8.5 MV dec time: 0.28 sec SV(ZONIAOT): 53.3 ml Reading Physician:
== END ==
PROVIDERS: PCP Family Medicine; Referring Provider Family Medicine; Visit Provider Family Medicine
DX: I08.1 Rheumatic disorders of both mitral and tricuspid valves (principal); R06.09 Other forms of dyspnea; R06.02 Shortness of breath; J67.9 Hypersensitivity pneumonitis due to unspecified organic dust; Z77.22 Contact with and (suspected) exposure to environmental tobacco smoke (acute) (chronic)
CPT/HCPCS: 93306

== ENCOUNTER → 2025-01-22 15:13 | Outpatient (CLI) | payer MEDICARE, SELFPAY ==
--- NOTE | 2025-01-22 15:15 | DI.RAD.S_ITS ---
PROCEDURE: XR ANKLE LT MIN 3V INDICATIONS: Swelling/pain, left ankle TECHNIQUE: 3 views of the ankle were acquired. COMPARISON: None. FINDINGS: Bones: No fractures or dislocations. Ankle mortise is normally aligned. No suspicious bony lesions. Soft tissues: No tibiotalar joint effusion. Achilles tendon appears normal. IMPRESSION: No acute bony abnormality or significant effusion. Dictated by: Candice Sharma MD, PhD on 01/23/2025 at 12:02 Approved by: Candice Sharma MD, PhD on 01/23/2025 at 12:04
== END ==
PROVIDERS: PCP Family Medicine; Referring Provider Family Medicine; Visit Provider Family Medicine
DX: M25.572 Pain in left ankle and joints of left foot (principal); M25.472 Effusion, left ankle
CPT/HCPCS: 73610

== ENCOUNTER 2025-02-16 10:15 | Outpatient (RCR) | payer MEDICARE, SELFPAY | END 2025-02-16 12:15 | LOC: PUL 10:15 | PROVIDERS: PCP Family Medicine; Referring Provider Family Medicine; Visit Provider Family Medicine | DX: U09.9 Post COVID-19 condition, unspecified (principal); R06.02 Shortness of breath | CPT/HCPCS: G0237; G0238 ==

== ENCOUNTER → 2025-11-04 06:59 | Outpatient (CLI) | payer MEDICARE, SELFPAY ==
[2025-11-04 07:59] LABS: Add Manual Diff / Slide Review NO; Hematocrit 45.2 % (36-46); Hemoglobin 15.3 g/dL (12.0-16.0); Lymphocytes Absolute Auto 1900 /uL (1100-4500); Mean Corpuscular HGB Conc 33.9 % (30-36); Mean Corpuscular Hemoglobin 31.8 PG (26-34); Mean Corpuscular Volume 93.8 fL (80-100); Platelet Count 230 X10^3/uL (150-400)
[2025-11-04 08:25] LABS: Alanine Aminotransferase 22 IU/L (<35); Albumin 4.3 g/dL (3.5-5.0); Albumin Globulin Ratio 1.4 (1.0-2.8); Alkaline Phosphatase 88 U/L (38-126); Blood Urea Nitrogen 14 mg/dL (7-17); Calcium 9.0 mg/dL (8.4-10.2); Carbon Dioxide 28 mmol/L (22-32); Chloride 106 mmol/L (98-107); Cholesterol 242 mg/dL (140-199); Estimated Glomerular Filt Rate > 60 mL/min (>60); Globulin 3.1 g/dL (1.7-4.1); Glucose 92 mg/dL (70-99); HDL Cholesterol 67 mg/dL (40-60); HEMOLYSIS < 15 (0-50); Potassium 4.7 mmol/L (3.4-5.1); Sodium 140 mmol/L (137-145); Total Protein 7.4 g/dL (6.3-8.2); Triglycerides 148 mg/dL (35-150)
[2025-11-04 09:51] LABS: TSH w/ Reflex to FT4 2.85 uIU/mL (0.47-4.68)
== END ==
PROVIDERS: Family Provider Family Medicine; PCP Family Medicine; Referring Provider Family Medicine; Visit Provider Family Medicine
DX: Z00.00 Encounter for general adult medical examination without abnormal findings (principal); E03.9 Hypothyroidism, unspecified; E78.00 Pure hypercholesterolemia, unspecified
CPT/HCPCS: 36415; 80053; 80061; 84443; 85025